=== PATIENT | female | born 1955 | race Caucasian/White ===

== ENCOUNTER 2016-12-14 10:59 | Observation (INO) | payer MEDICARE ==
--- NOTE | 2016-12-14 11:54 | ER Document Report ---
ED Medical Screen (RME) - General Chief Complaint: Weakness Stated Complaint: LEFT LEG PROBLEMS Time seen by provider: 11:40 Mode of Arrival: Wheelchair Information source: Patient, Relative Notes: Patient is a 61-year-old female presenting in his department for left lower extremity weakness. Patient states this occurred at 10 AM yesterday. Patient states she had an episode of dizziness which she describes as being off balance after taking her epileptic medications. Family member states that she sometimes does have dizziness after taking these medications. Patient laid down on the couch when the dizziness started and tried to get up and walk and was unable to due to the weakness. Patient has been taking good PO and denies headache, double vision, blurry vision, chest pain, shortness of breath, episodes of incontinence, or any pain associated to the left lower extremity. Patient states when she attempts to walk. Her leg is limp and drags. TRAVEL OUTSIDE OF THE [place] IN LAST 30 DAYS: No - Related Data Allergies/Adverse Reactions: No Known Allergies Allergy (Verified 12/14/16 11:45) Past Medical History Renal/ Medical History: Denies: Hx Peritoneal Dialysis Physical Exam - Vital signs Vitals: Temp Pulse Resp BP Pulse Ox 97.3 F 78 18 200/83 H 94 12/14/16 11:03 12/14/16 11:03 12/14/16 11:03 12/14/16 11:03 12/14/16 11:03 - Extremities General lower extremity: Other - 1/4 strength in the left lower extremity Course - Vital Signs Vital signs: Temp Pulse Resp BP Pulse Ox 97.3 F 78 18 200/83 H 94 12/14/16 11:03 12/14/16 11:03 12/14/16 11:03 12/14/16 11:03 12/14/16 11:03 Scribe Documentation - Scribe Written by Scribe:: Luisa Hurtado 12/14/16 11:55 acting as scribe for :: Jatin
--- NOTE | 2016-12-14 12:40 | ER Document Report ---
ED Dizziness/Weakness - General Chief Complaint: Weakness Stated Complaint: LEFT LEG PROBLEMS Mode of Arrival: Wheelchair Notes: Patient says that she started feeling dizzy yesterday morning about 9 or 10 AM. That was soon followed by inability to use her left leg, unable to move the leg and drags it when she tries to walk and she can't bear weight on the leg so that she falls if she is not assisted. Has no involvement of her arm. Has never had this before and no history of strokes. Denies any headache. Denies chest pain. TRAVEL OUTSIDE OF THE [place] IN LAST 30 DAYS: No - Related Data Allergies/Adverse Reactions: No Known Allergies Allergy (Verified 12/14/16 14:28) Past Medical History - General Information source: Patient, Relative - Social History Smoking Status: Current Every Day Smoker Cigarette use (# per day): Yes Family History: Reviewed & Not Pertinent Patient has suicidal ideation: No Patient has homicidal ideation: No - Past Medical History Cardiac Medical History: Reports: Hx Hypertension Neurological Medical History: Reports: Hx Seizures Review of Systems - Review of Systems Notes: REVIEW OF SYSTEMS: CONSTITUTIONAL : Denies fever. EENT: Denies eye, ear, nose or mouth or throat pain or other symptoms. CARDIOVASCULAR: Denies chest pain. RESPIRATORY: Denies cough, chest congestion, or shortness of breath. GASTROINTESTINAL: Denies abdominal pain or nausea, vomiting, or diarrhea. GENITOURINARY: Denies difficulty or painful urinating, urinary frequency, blood in urine. MUSCULOSKELETAL: Denies back or neck pain. Denies joint pain or swelling. SKIN: Denies rash or skin lesions. NEUROLOGICAL: Denies LOC or altered mental status. Denies headache. See history of present illness.. ALL OTHER SYSTEMS REVIEWED AND NEGATIVE. Physical Exam - Vital signs Vitals: Temp Pulse Resp BP Pulse Ox 97.3 F 78 18 200/83 H 94 12/14/16 11:03 12/14/16 11:03 12/14/16 11:03 12/14/16 11:03 12/14/16 11:03 Interpretation: Hypertensive - 200/83. - Notes Notes: PHYSICAL EXAMINATION: GENERAL: Well-appearing, in no acute distress. Blood pressure 200/83. Other vital signs normal. HEAD: Atraumatic, normocephalic. EYES: Pupils equal round and reactive to light, extraocular movements intact. ENT: oropharynx clear without exudates. Moist mucous membranes. NECK: Normal range of motion, supple. No carotid bruits heard. LUNGS: Breath sounds clear and equal bilaterally. HEART: Regular rate and rhythm without murmurs. ABDOMEN: Soft, nontender. No guarding or rebound. BACK: No tenderness throughout entire back. EXTREMITIES: Normal range of motion without pain. NEUROLOGICAL: Normal speech. Patient has weakness in the left leg. When we stand her up, she drags that leg and cannot bear weight on it and call if not assisted. Otherwise, Normal sensory, motor, and reflex exams. Awake, alert, and oriented x3. Cranial nerves normal. PSYCH: Normal mood, normal affect. SKIN: Warm, dry, no rashes. Course - Re-evaluation Re-evalutation: 12/14/16 15:38 Patient remained stable throughout her stay in the department. Her blood pressure was slightly elevated with systolics in the 150-160 range. Spoke with hospitalist doorperson and he will admit the patient to [facility]. - Vital Signs Vital signs: Temp Pulse Resp BP Pulse Ox 97.3 F 72 16 139/87 H 100 12/14/16 11:03 12/14/16 12:40 12/14/16 12:40 12/14/16 12:40 12/14/16 12:40 - Laboratory Result Diagrams: 12/14/16 12:57 12/14/16 12:57 Laboratory results interpreted by me: 12/14/16 12/14/16 12/14/16 12:57 12:57 15:15 WBC 11.6 H RBC 5.63 H Hgb 17.6 H Hct 51.0 H RDW 14.1 H Sodium 146.6 H Creatinine 0.49 L Glucose 127 H Calcium 10.4 H Total Protein 8.3 H Urine Protein 100 H - Diagnostic Test Radiology reviewed: Image reviewed, Reports reviewed - CT scan of the brain is normal. - EKG Interpretation by Ca EKG shows normal: Sinus rhythm Rate: Normal Rhythm: NSR Additional EKG results interpreted by ks: 12/14/16 15:37 EKG shows no acute changes. Discharge - Discharge Clinical Impression: Stroke Qualifiers: CVA mechanism: unspecified Qualified Code(s): I63.9 - Cerebral infarction, unspecified Condition: Stable Disposition: ADMITTED INPATIENT Admitting Provider: Hospitalist Unit Admitted: [facility]
[2016-12-14 13:25] LABS: ABSOLUTE BASOPHILS # (AUTO) 0.1 10^3/uL (0.0-0.2); ABSOLUTE EOSINOPHILS # (AUTO) 0.1 10^3/uL (0.0-0.6); ABSOLUTE LYMPHOCYTES (AUTO) 3.2 10^3/uL (0.5-4.7); ABSOLUTE NEUT (AUTO) 7.1 10^3/uL (1.7-8.2); BASOPHILS % (AUTO) 0.8 % (0-2); EOSINOPHILS % (AUTO) 1.2 % (0-6); HEMOGLOBIN 17.6 g/dL (12.0-15.5); HGB HCT DIFFERENCE 1.8; LYMPHOCYTES % (AUTO) 27.8 % (13-45); MEAN CORPUSCULAR HEMOGLOBIN 31.3 pg (27.0-33.4); MEAN CORPUSCULAR HGB CONC 34.5 g/dL (32.0-36.0); MEAN CORPUSCULAR VOLUME 91 fl (80-97); MONOCYTES % (AUTO) 8.7 % (3-13); RED BLOOD COUNT 5.63 10^6/uL (3.72-5.28); RED CELL DISTRIBUTION WIDTH 14.1 % (11.5-14.0); SEGMENTED NEUTROPHILS % (AUTO) 61.5 % (42-78); WHITE BLOOD COUNT 11.6 10^3/uL (4.0-10.5)
[2016-12-14 13:30] LABS: PROTHROMBIN TIME 12.8 SEC (11.4-15.4)
[2016-12-14 13:43] LABS: ALANINE AMINOTRANSFERASE 41 U/L (9-52); ALBUMIN 4.6 g/dL (3.5-5.0); ALKALINE PHOSPHATASE 104 U/L (38-126); ANION GAP 15 (5-19); ASPARTATE AMINO TRANSFERASE 23 U/L (14-36); BILIRUBIN,DIRECT 0.3 mg/dL (0.0-0.4); BILIRUBIN,TOTAL 0.6 mg/dL (0.2-1.3); BLOOD UREA NITROGEN 9 mg/dL (7-20); CALCIUM 10.4 mg/dL (8.4-10.2); CARBON DIOXIDE 26 mmol/L (22-30); CHLORIDE 106 mmol/L (98-107); CREATINE KINASE 45 U/L (30-135); CREATININE RESULT 0.49 mg/dL (0.52-1.25); GLUCOSE 127 mg/dL (75-110); POTASSIUM 3.8 mmol/L (3.6-5.0); SODIUM 146.6 mmol/L (137-145); TOTAL PROTEIN 8.3 g/dL (6.3-8.2)
[2016-12-14 13:55] LABS: CREATINE KINASE MB 0.49 ng/mL (<4.55)
[2016-12-14 14:00] LABS: TROPONIN I < 0.012 ng/mL
[2016-12-14 15:44] LABS: APPEARANCE,URINE CLEAR; BILIRUBIN,URINE NEGATIVE (NEGATIVE); GLUCOSE, URINE NEGATIVE (NEGATIVE); KETONES,URINE NEGATIVE (NEGATIVE); LEUKOCYTE ESTERASE,URINE NEGATIVE (NEGATIVE); NITRITE,URINE NEGATIVE (NEGATIVE); PROTEIN,URINE 100 mg/dL (NEGATIVE); URINE SPECIFIC GRAVITY 1.008; UROBILINOGEN,URINE NEGATIVE mg/dL (<2.0)
[2016-12-14] MEDS ORDERED: ACETAMINOPHEN 325 MG TABLET PO PRN (16:08)
[2016-12-14] MEDS ORDERED: ONDANSETRON HCL INJ/PF 4 MG/2 ML SDV IV PRN (16:08)
--- NOTE | 2016-12-14 16:23 | PDOC H&P ---
History of Present Illness Patient complains of: Left leg weakness History of Present Illness: BRIAN WHEELER is a 61 year old female who moved to the area from [place] one month ago who has no primary care doctor year presents with left leg weakness. Patient reports that when she woke up on Sunday morning she was unable to move her leg. She was concerned that she may have just slept on it wrong and did not go seek medical attention. Patient got up today and was still continuing to have weakness although was slightly improved. Patient presented to emergency room was found to have left leg weakness. She denies any other symptoms. She denies any upper extremity weakness. Denies any paresthesias or numbness. Denies any visual or hearing changes. Denies any odynophagia or dysphagia. She. She does smoke 1 pack per day but has no other risk factors for vascular disease. Past Medical History Cardiac Medical History: Reports: Hypertension Pulmonary Medical History: Reports: None EENT Medical History: Reports: Eyes - History of a blowout fracture of her left latter day causing anisocoria. Neurological Medical History: Reports: Seizures Endocrine Medical History: Reports: None Renal/ Medical History: Reports: None Malignancy Medical History: Reports: None GI Medical History: Reports: None Musculoskeltal Medical History: Reports: None Skin Medical History: Reports: None Psychiatric Medical History: Reports: None Hematology: Reports: None Infectious Medical History: Reports: None Past Surgical History Past Surgical History: Reports: Section, Tonsillectomy Social History Information Source: Patient Lives with: Family Smoking Status: Current Every Day Smoker Frequency of Alcohol Use: None Hx Recreational Drug Use: No Drugs: None Hx Prescription Drug Abuse: No - Advance Directive Resuscitation Status: Full Code Family History Family History: Mother in her 70s from common location for diabetes. Father at age 88 and had an unspecified cancer. Parental Family History Reviewed: Yes Children Family History Reviewed: No Sibling(s) Family History Reviewed.: No Medication/Allergy Allergies/Adverse Reactions: No Known Allergies Allergy (Verified 12/14/16 14:28) Review of Systems Constitutional: ABSENT: chills, fever(s), headache(s), weight gain, weight loss Eyes: ABSENT: visual disturbances Ears: ABSENT: hearing changes Cardiovascular: ABSENT: chest pain, dyspnea on exertion, edema, orthropnea, palpitations Respiratory: ABSENT: cough, hemoptysis Gastrointestinal: ABSENT: abdominal pain, constipation, diarrhea, hematemesis, hematochezia, nausea, vomiting Genitourinary: ABSENT: dysuria, hematuria Musculoskeletal: ABSENT: joint swelling Integumentary: ABSENT: rash, wounds Neurological: PRESENT: as per HPI Psychiatric: ABSENT: anxiety, depression Endocrine: ABSENT: cold intolerance, heat intolerance, polydipsia, polyuria Hematologic/Lymphatic: ABSENT: easy bleeding, easy bruising Physical Exam Vital Signs: Temp Pulse Resp BP Pulse Ox 97.3 F 72 16 139/87 H 100 12/14/16 11:03 12/14/16 12:40 12/14/16 12:40 12/14/16 12:40 12/14/16 12:40 Intake & Output 12/13/16 12/14/16 12/15/16 06:59 06:59 06:59 Weight 70.4 kg General appearance: PRESENT: no acute distress, well-developed, well-nourished Head exam: PRESENT: atraumatic, normocephalic Eye exam: PRESENT: conjunctiva pink, EOMI, other - Anisocoria with the left pupil bigger than the right.. ABSENT: scleral icterus Ear exam: PRESENT: normal external ear exam Mouth exam: PRESENT: moist, tongue midline Neck exam: ABSENT: carotid bruit, JVD, lymphadenopathy, thyromegaly Respiratory exam: PRESENT: clear to auscultation elisabeth. ABSENT: rales, rhonchi, wheezes Cardiovascular exam: PRESENT: RRR. ABSENT: diastolic murmur, rubs, systolic murmur Pulses: PRESENT: normal dorsalis pedis pul Vascular exam: PRESENT: normal capillary refill GI/Abdominal exam: PRESENT: normal bowel sounds, soft. ABSENT: distended, guarding, mass, organolmegaly, rebound, tenderness Rectal exam: PRESENT: deferred Extremities exam: PRESENT: full ROM. ABSENT: calf tenderness, clubbing, pedal edema Neurological exam: PRESENT: alert, awake, oriented to person, oriented to place , oriented to time, oriented to situation, CN II-XII grossly intact, motor sensory deficit - Patient has weakness in the left leg. Normal sensation however. Psychiatric exam: PRESENT: appropriate affect Skin exam: PRESENT: other - Patient has telangiectasia around her toenails. Results Laboratory Results: 12/14/16 12:57 12/14/16 12:57 12/14/16 12/14/16 12/14/16 12:57 12:57 15:15 WBC 11.6 H RBC 5.63 H Hgb 17.6 H Hct 51.0 H MCV 91 MCH 31.3 MCHC 34.5 RDW 14.1 H Plt Count 233 Seg Neutrophils % 61.5 Lymphocytes % 27.8 Monocytes % 8.7 Eosinophils % 1.2 Basophils % 0.8 Absolute Neutrophils 7.1 Absolute Lymphocytes 3.2 Absolute Monocytes 1.0 Absolute Eosinophils 0.1 Absolute Basophils 0.1 Sodium 146.6 H Potassium 3.8 Chloride 106 Carbon Dioxide 26 Anion Gap 15 BUN 9 Creatinine 0.49 L Est GFR ( Amer) > 60 Est GFR (Non-Af Amer) > 60 Glucose 127 H Calcium 10.4 H Total Bilirubin 0.6 AST 23 ALT 41 Alkaline Phosphatase 104 Total Protein 8.3 H Albumin 4.6 Urine Color YELLOW Urine Appearance CLEAR Urine pH 6.0 Ur Specific Julian 1.008 Urine Protein 100 H Urine Glucose (UA) NEGATIVE Urine Ketones NEGATIVE Urine Blood NEGATIVE Urine Nitrite NEGATIVE Ur Leukocyte Esterase NEGATIVE Urine WBC (Auto) 2 Urine RBC (Auto) 1 12/14/16 12/14/16 12:57 12:57 Creatine Kinase 45 CK-MB (CK-2) 0.49 Troponin I < 0.012 Impressions: Head CT 12/14/16 11:49 IMPRESSION: No acute intracranial abnormality identified. Chest X-Ray 12/14/16 12:34 IMPRESSION: NO SIGNIFICANT RADIOGRAPHIC FINDING IN THE CHEST. Assessment & Plan - Diagnosis (1) Stroke Qualifiers: CVA mechanism: unspecified Qualified Code(s): I63.9 - Cerebral infarction, unspecified Is this a current diagnosis for this admission?: YesPlan: The patient has left leg weakness. She has no other neurological findings. The daughter reports that she is stronger now than she was yesterday when she woke up with this. Patient has been taking aspirin we will continue with that. Will check an MRI. Also check carotid Dopplers. Patient is a smoker which is her risk factors for having a CVA. The patient does have anisocoria however that is unrelated to this acute event and she has had from a previous trauma. If the MRI does not show any obvious abnormality the possibility this representing Brendon's paralysis is considered. (2) Seizure disorder Is this a current diagnosis for this admission?: YesPlan: We'll continue with the Roxane. The possibility this represents Brendon's paralysis as a cause for her left leg weakness is considered. - Time Time Spent: 50 to 70 Minutes - Plan Summary Plan Summary: We'll admit as observation as I anticipate we can discharge home tomorrow.
[2016-12-14] MEDS: LEVETIRACETAM 500 MG TABLET PO SCH (20:28)
[2016-12-14] MEDS ORDERED: LEVETIRACETAM 500 MG TABLET PO SCH (22:00)
[2016-12-14] MEDS ORDERED: ATORVASTATIN CALCIUM 20 MG TABLET PO SCH (22:00)
[2016-12-14] MEDS: FAMOTIDINE 20 MG TABLET PO SCH (23:05)
[2016-12-15] MEDS ORDERED: ENOXAPARIN SODIUM INJ 40 MG/0.4 ML DISP.SYRIN SUBCUT SCH (08:00)
[2016-12-15] MEDS: LEVETIRACETAM 500 MG TABLET PO SCH (08:30)
[2016-12-15 09:27] VITALS: BP 148/84
[2016-12-15] MEDS: FAMOTIDINE 20 MG TABLET PO SCH (09:36)
--- NOTE | 2016-12-15 09:39 | EKG REPORT ---
SEVERITY:- ABNORMAL ECG - SINUS RHYTHM CONSIDER ANTEROSEPTAL INFARCT : Confirmed by: Nba Arroyo 15-Dec-2016 09:39:00
--- NOTE | 2016-12-15 09:41 | PDOC DISCHARGE SUMMARY ---
General - Admit/Disc Date/PCP Admission Date/Primary Care Provider: 12/14/16 16:08 Discharge Date: 12/15/16 - Discharge Diagnosis (1) Stroke Is this a current diagnosis for this admission?: YesSummary: Acute CVA with left leg weakness (2) Seizure disorder Is this a current diagnosis for this admission?: Yes - Additional Information Resuscitation Status: Full Code Discharge Diet: Cardiac Discharge Activity: Activity As Tolerated, Balance Activity w/Rest Home Medications: Amlodipine Besylate 10 mg PO DAILY 12/14/16 Aspirin 325 mg PO DAILY 12/14/16 Atorvastatin Calcium [Lipitor 20 mg Tablet] 20 mg PO QHS #30 tablet 12/15/16 Levetiracetam [Keppra 500 mg Tablet] 500 mg PO DAILY@2000 tablet 12/15/16 Levetiracetam [Keppra 500 mg Tablet] 750 mg PO DAILY@0800 tablet 12/15/16 History of Present Illness History of Present Illness: BRIAN WHEELER is a 61 year old female who moved to the area from [place] one month ago who has no primary care doctor year presents with left leg weakness. Patient reports that when she woke up on Sunday morning she was unable to move her leg. She was concerned that she may have just slept on it wrong and did not go seek medical attention. Patient got up today and was still continuing to have weakness although was slightly improved. Patient presented to emergency room was found to have left leg weakness. She denies any other symptoms. She denies any upper extremity weakness. Denies any paresthesias or numbness. Denies any visual or hearing changes. Denies any odynophagia or dysphagia. She. She does smoke 1 pack per day but has no other risk factors for vascular disease. Hospital Course Hospital Course: 61-year-old female who presented with left leg weakness. The patient was found to have an acute right parietal CVA. Patient had been on aspirin but was not on any statins. She had an MRI that confirmed the CVA. She also had carotid Dopplers which showed no evidence for significant stenosis. She is being sent home for physical therapy at home and will continue aspirin with the addition of the statin. Physical Exam Vital Signs: Temp Pulse Resp BP Pulse Ox 97.8 F 62 16 148/84 H 96 12/15/16 09:23 12/15/16 09:23 12/15/16 09:23 12/15/16 09:23 12/15/16 09:23 Intake & Output 12/14/16 12/15/16 12/16/16 06:59 06:59 06:59 Intake Total 5 Output Total 400 Balance -395 Weight 68.1 kg General appearance: PRESENT: no acute distress Eye exam: PRESENT: conjunctiva pink. ABSENT: scleral icterus Mouth exam: PRESENT: moist, tongue midline Neck exam: ABSENT: JVD Respiratory exam: PRESENT: clear to auscultation elisabeth. ABSENT: rales, rhonchi, wheezes Cardiovascular exam: PRESENT: RRR. ABSENT: diastolic murmur, rubs, systolic murmur GI/Abdominal exam: PRESENT: normal bowel sounds, soft. ABSENT: distended, guarding, mass, organolmegaly, rebound, tenderness Extremities exam: ABSENT: calf tenderness, clubbing, pedal edema Neurological exam: PRESENT: alert, awake, oriented to person, oriented to place , oriented to time, oriented to situation, CN II-XII grossly intact, motor sensory deficit - 4-5 strength in the left leg. Psychiatric exam: PRESENT: appropriate affect Skin exam: PRESENT: dry, intact, warm. ABSENT: cyanosis, rash Results Impressions: Head MRI 12/14/16 00:00 IMPRESSION: 1. ABNORMAL SIGNAL IN THE POSTERIOR LIMB OF THE RIGHT INTERNAL CAPSULE CONSISTENT WITH AN ACUTE INFARCT. 2. ATROPHY AND CHRONIC MICRO-VASCULAR ISCHEMIC CHANGES. Head CT 12/14/16 11:49 IMPRESSION: No acute intracranial abnormality identified. Chest X-Ray 12/14/16 12:34 IMPRESSION: NO SIGNIFICANT RADIOGRAPHIC FINDING IN THE CHEST. Carotid Doppler Study 12/14/16 16:11 IMPRESSION: NO HEMODYNAMICALLY SIGNIFICANT STENOSIS. Qualifiers PATEINT BEING DISCHARGED WITH ANY OF THE FOLLOWING DIAGNOSIS?: Stroke Stroke Pt being discharged on Anti-thrombolytic therapy?: Yes Stroke Pt being discharged on Anti-coagulation therapy?: No Reason(s) for not prescribing Anti-coagulation therapy:: Procedure Contraindicated Stroke Pt being discharged on Statins?: Yes Plan Discharge Plan: Patient is discharged home with home health for physical therapy. Follow-up with primary care in 2 weeks. Time Spent: Less than 30 Minutes
[2016-12-15] MEDS ORDERED: ASPIRIN 325 MG TABLET, ENT COATED PO SCH (10:00)
[2016-12-15] MEDS ORDERED: LEVETIRACETAM 500 MG TABLET PO SCH (20:00)
[2016-12-16] MEDS ORDERED: LEVETIRACETAM 500 MG TABLET PO SCH (08:00)
== END 2016-12-15 12:28 | disposition home health service (06) ==
LOC: ER 10:59 → EH 16:08 → UNDOADMOB 16:37 → INTOOBSV 16:37 → EH 16:37 → 3W 12-15
PROVIDERS: ADMIT Emergency Medicine; ATTEND Emergency Medicine
DX: I63.9 Cerebral infarction, unspecified (principal); G81.94 Hemiplegia, unspecified affecting left nondominant side; G40.909 Epilepsy, unspecified, not intractable, without status epilepticus; I10 Essential (primary) hypertension; T14.90 Injury, unspecified; H57.02 Anisocoria; F17.210 Nicotine dependence, cigarettes, uncomplicated; I78.1 Nevus, non-neoplastic; Z87.81 Personal history of (healed) traumatic fracture; Z79.899 Other long term (current) drug therapy; Z79.82 Long term (current) use of aspirin
CPT/HCPCS: 93005; 99285; 36415; 82553; 82550; 85025; 85610; 80053; 81001; 84484; 93880; 70551; 71020; 70450; 93010; 97163; G0378 ×2; A9270 ×4; J1650; J3490; G8978; G8979

== ENCOUNTER → 2017-02-08 | Outpatient (CLI) | payer MEDICARE ==
--- NOTE | 2017-02-12 13:57 | EEG PRO FEE REPORT ---
EEG INTERPRETATION PATIENT NAME: BRIAN WHEELER ROOM#: ORDER#: [id number] DATE OF STUDY: 02/08/2017 : 1955 REFERRING MD: DANNY BARRIOS M.D. DIAGNOSIS: Epilepsy MEDICATIONS: None listed REPORT This is a 16 channel EEG recording with a channel of EKG done during wakefulness, photic stimulation, and early stages of sleep. The background activity of the tracing is 8-9 cycles per second, well formed and reactive alpha seen best in the posterior electrodes. Beta 18-22 cycles per second, intermittent, nonlocalized or sustained slower forms seen. Photic stimulation was administered and did not alter the tracing significantly. In the early stages of sleep, more generalized slowing is seen. IMPRESSION This EEG is within normal limits. INTERPRETING PHYSICIAN: BUTCH CHAPA M.D. /: MTEFTRACEY TT: 1351 ID: [id number] /: [id number] TD: 1229 JOB: [id number] cc:Baldemar MATHIS M.D. >
== END ==
LOC: NEURO 12:57
PROVIDERS: ATTEND Pediatrics
DX: G40.909 Epilepsy, unspecified, not intractable, without status epilepticus (principal)
CPT/HCPCS: 95819